=== PATIENT | male | born 1985 | race African-American/Black ===

== ENCOUNTER 2021-12-15 10:44 | Emergency (ER) | payer OTHER ==
[~2021-12-15] VITALS: Ht 185.4 cm; Wt 95.5 kg
[~2021-12-15 10:44] MED LIST: CEPHALEXIN500 M1 PO; CLINDAMYCIN HC150 MG PO; NO HOME MEDICATIONS; NORCO 325 MG-51 TAB PO; PERCOCET 5/321 UDTAB PO
[2021-12-15 10:51] VITALS: PULSE 82; TEMP 98
[2021-12-15] MEDS ORDERED: MOTRIN 800800 MG/TAB PO (13:25)
[2021-12-15] MEDS ORDERED: NORCO 325 MG-51 TAB PO (13:25)
== END 2021-12-15 13:40 | disposition home or self-care (01) ==
LOC: COL.ER 10:44
DX: S20.211A Contusion of right front wall of thorax, initial encounter (principal); M54.50 Low back pain, unspecified; F17.200 Nicotine dependence, unspecified, uncomplicated; Z28.310 Unvaccinated for COVID-19; V43.52XA Car driver injured in collision with other type car in traffic accident, initial encounter; Y92.410 Unspecified street and highway as the place of occurrence of the external cause